=== PATIENT | female | born 1950 | race Caucasian/White ===

== ENCOUNTER 2016-05-25 06:24 | Emergency (ER) | payer OTHER ==
[2016-05-25] MEDS ORDERED: OPTIRAY 350 100 ML VIAL HMH IV ONE (06:25)
[2016-05-25] MEDS ORDERED: SODIUM CHLORIDE 0.9% 1,000 ML ONE (06:47)
[2016-05-25] MEDS ORDERED: DICYCLOMINE 20MG/2ML VIAL IM ONE (06:47)
== END 2016-05-25 11:58 | disposition home or self-care (01) ==
LOC: ER 06:24
DX: R10.84 Generalized abdominal pain (principal); R91.1 Solitary pulmonary nodule; A08.4 Viral intestinal infection, unspecified; D17.71 Benign lipomatous neoplasm of kidney
CPT/HCPCS: 36415; 74177; 80053; 81001; 83690; 85025; 96360; 96372; 99285; J0500; Q9967